=== PATIENT | female | born 1990 | race Caucasian/White ===

== ENCOUNTER 2017-08-08 19:00 | Inpatient (IN) | payer BC ==
[2017-08-08] MEDS ORDERED: Misoprostol 25 MCG (1/4 of 100 MCG) Tab ONE (19:25)
[2017-08-08] MEDS ORDERED: Misoprostol 100 MCG Tab VAG PRN (19:41)
[2017-08-08] MEDS ORDERED: Sodium Chloride 0.9% 10 ML Syringe FLUSH PRN (19:41)
[2017-08-09] MEDS ORDERED: Oxytocin/Lactated Ringers 10 UNIT/1,000 ML BAG IV SCH (00:30)
[2017-08-09] MEDS: Lactated Ringers 1,000 ML IV SCH ×3 (00:50→07:21)
[2017-08-09] MEDS ORDERED: diphenhydrAMINE 50 MG/ML SDV IVPUSH PRN (06:11)
[2017-08-09] MEDS ORDERED: ePHEDrine 50 MG/ML SDV IVPUSH PRN (06:11)
[2017-08-09] MEDS ORDERED: Ondansetron 4 MG/2 ML SDV IVPUSH PRN (06:11)
[2017-08-09] MEDS ORDERED: fentaNYL 100 MCG/2 ML SDV EPIDUR PRN (06:12)
[2017-08-09] MEDS ORDERED: Bupivacaine/fentaNYL/NS 100 ML Bag EPIDUR SCH (06:15)
--- NOTE | 2017-08-09 06:58 | PCM.PREANE ---
Preanesthetic Assessment - Anesthesia/Transfusion/Family Hx Anesthesia History: No Prior Anesthesia Family History of Anesthesia Reaction: No Transfusion History: No Prior Transfusion(s) - Review of Systems General: No Symptoms Pulmonary: No Symptoms Cardiovascular: No Symptoms Gastrointestinal: No Symptoms Neurological: No Symptoms Other: Reports: None - Physical Assessment Respiratory Rate: 14 Vital Signs: Last Vital Signs Temp 37.3 C 08/08/17 19:42 Pulse 78 08/08/17 19:42 Resp 14 08/08/17 19:42 BP 128/78 08/08/17 19:42 Pulse Ox Height: 1.73 m Weight: 88.451 kg ASA Class: 2 Mental Status: Alert & Oriented x3 Airway Class: Mallampati = 1 Dentition: Reports: Normal Dentition Thyro-Mental Finger Breadths: 3 Mouth Opening Finger Breadths: 3 ROM/Head Extension: Full Lungs: Clear to Auscultation, Normal Respiratory Effort Cardiovascular: Regular Rate, Regular Rhythm - Lab Values: Laboratory Last Values WBC 16.88 K/mm3 (3.98-10.04) H 08/09/17 06:00 RBC 4.15 M/mm3 (3.98-5.22) 08/09/17 06:00 Hgb 12.9 gm/L (11.2-15.7) 08/09/17 06:00 Hct 38.5 % (34.1-44.9) 08/09/17 06:00 MCV 92.8 fl (79.4-94.8) 08/09/17 06:00 MCH 31.1 pg (25.6-32.2) 08/09/17 06:00 MCHC 33.5 g/dl (32.2-35.5) 08/09/17 06:00 RDW Std Deviation 44.1 fL (36.4-46.3) 08/09/17 06:00 Plt Count 163 K/mm3 (182-369) L 08/09/17 06:00 MPV 12.1 fl (9.4-12.3) 08/09/17 06:00 Neut % (Auto) 77.6 % (34.0-71.1) H 08/09/17 06:00 Lymph % (Auto) 14.9 % (19.3-51.7) L 08/09/17 06:00 [place] % (Auto) 7.0 % (4.7-12.5) 08/09/17 06:00 Eos % (Auto) 0.1 (0.7-5.8) L 08/09/17 06:00 Baso % (Auto) 0.1 % (0.1-1.2) 08/09/17 06:00 Neut # (Auto) 13.09 K/mm3 (1.56-6.13) H 08/09/17 06:00 Lymph # (Auto) 2.51 K/mm3 (1.18-3.74) 08/09/17 06:00 [place] # (Auto) 1.19 K/mm3 (0.24-0.36) H 08/09/17 06:00 Eos # (Auto) 0.02 K/mm3 (0.04-0.36) L 08/09/17 06:00 Baso # (Auto) 0.02 K/mm3 (0.01-0.08) 08/09/17 06:00 - Allergies Allergies/Adverse Reactions: Allergies Allergy/AdvReac Type Severity Reaction Status Date / Time amoxicillin Allergy Rash Verified 08/08/17 20:48 - Acknowledgements Anesthesia Type Planned: Epidural Pt an Appropriate Candidate for the Planned Anesthesia: Yes Alternatives and Risks of Anesthesia Discussed w Pt/Guardian: Yes Pt/Guardian Understands and Agrees with Anesthesia Plan: Yes PreAnesthesia Questionnaire HEENT History: Reports: None Cardiovascular History: Reports: None Respiratory History: Reports: None Gastrointestinal History: Reports: Other (See Below) Other Gastrointestinal History: Occasional constipation Genitourinary History: Reports: 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: Musculoskeletal History: Reports: None Neurological History: Reports: None Psychiatric History: Reports: None Endocrine/Metabolic History: Reports: None Hematologic History: Reports: None Immunologic History: Reports: None Oncologic (Cancer) History: Reports: None Dermatologic History: Reports: None - Past Surgical History Head Surgeries/Procedures: Reports: None HEENT Surgical History: Reports: None Cardiovascular Surgical History: Reports: None Respiratory Surgical History: Reports: None GI Surgical History: Reports: None Female Surgical History: Reports: None Endocrine Surgical History: Reports: None Neurological Surgical History: Reports: None Musculoskeletal Surgical History: Reports: None Oncologic Surgical History: Reports: None Dermatological Surgical History: Reports: None - SUBSTANCE USE Smoking Status *Q: Former Smoker Tobacco Use Within Last Twelve Months: No Second Hand Smoke Exposure: No Recreational Drug Use History: No - CURRENT (IN HOUSE) MEDS Current Meds: Current Medications Diphenhydramine HCl (Benadryl) 25 mg IVPUSH Q6H PRN PRN Reason: Pruritis Ephedrine Sulfate (Ephedrine Sulfate) 5 mg IVPUSH ASDIRECTED PRN PRN Reason: Hypotension Fentanyl (Sublimaze) 100 mcg EPIDUR ONETIME PRN PRN Reason: Pain Last Admin: 08/09/17 06:50 Dose: 100 mcg Fentanyl/Bupivacaine HCl (Fentanyl/Bupivacaine/Ns 2 Mcg-0.125% 100 Ml) 100 ml EPIDUR ASDIRECTED [facility] Last Admin: 08/09/17 06:49 Dose: 100 ml Lactated Ringer's (Ringers, Lactated) 1,000 mls @ 40 mls/hr IV ASDIRECTED [facility] Last Admin: 08/09/17 06:08 Dose: 999 mls/hr Oxytocin/Lactated Ringer's (Pitocin In Lr 10 Units/1,000 Ml) 10 unit in 1,000 mls @ 6 mls/hr IV TITRATE [facility] HUGO; 1 MUNITS/MIN PRN Reason: Protocol Last Titration: 08/09/17 04:53 Dose: 2 munits/min, 12 mls/hr Misoprostol (Cytotec) 25 mcg VAG Q4H PRN PRN Reason: cervical ripening Last Admin: 08/08/17 19:31 Dose: 25 mcg Ondansetron HCl (Zofran) 4 mg IVPUSH ONETIME PRN PRN Reason: Nausea/Vomiting Sodium Chloride (Saline Flush) 10 ml FLUSH ASDIRECTED PRN PRN Reason: Keep Vein Open Discontinued Medications Misoprostol (Cytotec) Confirm Administered Dose 25 mcg .ROUTE .STK-MED ONE Stop: 08/08/17 19:26 Last Admin: 08/08/17 20:54 Dose: Not Given
--- NOTE | 2017-08-09 12:22 | PCM.LDHP ---
L&D History of Present Illness - General Date of Service: 08/08/17 Admit Problem/Dx: Admission Diagnosis/Problem Admission Diagnosis/Problem Source of Information: Patient History Limitations: Reports: No Limitations - History of Present Illness Introduction:: 27 year old at 40+ weeks here for induction of labor. Irregular contractions. 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: Musculoskeletal History: Reports: None Neurological History: Reports: None Psychiatric History: Reports: None Endocrine/Metabolic History: Reports: None Hematologic History: Reports: None Immunologic History: Reports: None Oncologic (Cancer) History: Reports: None Dermatologic History: Reports: None - Past Surgical History Head Surgeries/Procedures: Reports: None HEENT Surgical History: Reports: None Cardiovascular Surgical History: Reports: None Respiratory Surgical History: Reports: None GI Surgical History: Reports: None Female Surgical History: Reports: None Endocrine Surgical History: Reports: None Neurological Surgical History: Reports: None Musculoskeletal Surgical History: Reports: None Oncologic Surgical History: Reports: None Dermatological Surgical History: Reports: None Social & Family History - Family History Family Medical History: Noncontributory - Tobacco Use Smoking Status *Q: Former Smoker Years of Tobacco use: 7 Used Tobacco, but Quit: Yes Month Tobacco Last Used: quit 3 years ago Second Hand Smoke Exposure: No - Caffeine Use Caffeine Use: Reports: None - Recreational Drug Use Recreational Drug Use: No H&P Review of Systems - Review of Systems: Review Of Systems: See Below General: Reports: No Symptoms HEENT: Reports: No Symptoms Pulmonary: Reports: No Symptoms Cardiovascular: Reports: No Symptoms Gastrointestinal: Reports: No Symptoms Genitourinary: Reports: No Symptoms Musculoskeletal: Reports: No Symptoms Skin: Reports: No Symptoms Psychiatric: Reports: No Symptoms Neurological: Reports: No Symptoms Hematologic/Lymphatic: Reports: No Symptoms Immunologic: Reports: No Symptoms L&D Exam - Exam Exam: See Below - Vital Signs Vital Signs: Last Vital Signs Temp 37.3 C 08/08/17 19:42 Pulse 78 08/08/17 19:42 Resp 14 08/09/17 06:57 BP 128/78 08/08/17 19:42 Pulse Ox Weight: 88.451 kg - OB Specific Contraction Intensity: Mild Movement: Active Heart Tones: Present Heart Rate (FHR) Variability: Moderate (6-25 bmp) Presentation: Vertex - Georges Score Georges Score Cervix Position: Midposition Georges Score Consistency: Soft Georges Score Effacement: 51-70% Georges Score Dilation: 3-4 cm Georges Score 's Station: -2 Georges Score Total: 8 - Exam General: Alert, Oriented HEENT: PERRLA, Conjunctiva Clear, EACs Clear, EOMI, Hearing Intact, Mucosa Moist & [place], Nares Patent, Normal Nasal Septum, Posterior Pharynx Clear, TMs Clear Neck: Supple, Trachea Midline Lungs: Clear to Auscultation, Normal Respiratory Effort Cardiovascular: Regular Rate, Regular Rhythm GI/Abdominal Exam: Normal Bowel Sounds, Soft, Non-Tender, No Organomegaly, No Distention, No Abnormal Bruit, No Mass, Pelvis Stable Rectal Exam: Normal Rectal Tone Genitourinary: Normal external exam, Normal bimanual exam, Normal speculum exam Back Exam: Normal Inspection, Full Range of Motion Extremities: Normal Inspection, Normal Range of Motion, Non-Tender, No Pedal Edema, Normal Capillary Refill Skin: Warm, Dry, Intact Neurological: Cranial Nerves Intact, Reflexes Equal Bilateral Psychiatric: Alert, Normal Affect, Normal Mood - Patient Data Lab Results Last 24 hrs: Laboratory Results - last 24 hr 08/09/17 08/09/17 Range/Units 06:00 06:00 WBC 16.88 H (3.98-10.04) K/mm3 RBC 4.15 (3.98-5.22) M/mm3 Hgb 12.9 (11.2-15.7) gm/L Hct 38.5 (34.1-44.9) % MCV 92.8 (79.4-94.8) fl MCH 31.1 (25.6-32.2) pg MCHC 33.5 (32.2-35.5) g/dl RDW Std Deviation 44.1 (36.4-46.3) fL Plt Count 163 L (182-369) K/mm3 MPV 12.1 (9.4-12.3) fl Neut % (Auto) 77.6 H (34.0-71.1) % Lymph % (Auto) 14.9 L (19.3-51.7) % [place] % (Auto) 7.0 (4.7-12.5) % Eos % (Auto) 0.1 L (0.7-5.8) Baso % (Auto) 0.1 (0.1-1.2) % Neut # (Auto) 13.09 H (1.56-6.13) K/mm3 Lymph # (Auto) 2.51 (1.18-3.74) K/mm3 [place] # (Auto) 1.19 H (0.24-0.36) K/mm3 Eos # (Auto) 0.02 L (0.04-0.36) K/mm3 Baso # (Auto) 0.02 (0.01-0.08) K/mm3 Blood Type AB POSITIVE Gel Antibody Screen Negative Result Diagrams: 08/09/17 06:00 Problem List Initiated/Reviewed/Updated: Yes Orders Last 24hrs: Active Orders 24 hr Category Date Time Status Communication Order [RC] ASDIRECTED Care 08/08/17 19:42 Active Communication Order [RC] ASDIRECTED Care 08/08/17 19:42 Active Communication Order [RC] ASDIRECTED Care 08/08/17 19:42 Active Monitoring [RC] INTERMITTENT Care 08/08/17 19:42 Active Notify Provider [RC] ASDIRECTED Care 08/08/17 19:42 Active Notify Provider [RC] ASDIRECTED Care 08/09/17 06:11 Active Peripheral IV Care [RC] . DIRECTED Care 08/08/17 19:42 Active Vaginal Exam [RC] ASDIRECTED Care 08/08/17 19:42 Active Vital Signs [RC] ASDIRECTED Care 08/08/17 19:42 Active Bupivacaine/fentaNYL/NS [fentaNYL/Bupivacaine/NS 2 MCG- Med 08/09/17 06:15 Active 0.125% 100 ML] 100 ml EPIDUR ASDIRECTED Lactated Ringers [Ringers, Lactated] 1,000 ml Med 08/08/17 19:45 Active IV ASDIRECTED Misoprostol [Cytotec] Med 08/08/17 19:41 Active 25 mcg VAG Q4H PRN Ondansetron [Zofran] Med 08/09/17 06:11 Active 4 mg IVPUSH ONETIME PRN Oxytocin/Lactated Ringers [Pitocin in LR 10 Units/1,000 Med 08/09/17 00:30 Active ML] 10 unit in 1,000 ml IV TITRATE Sodium Chloride 0.9% [Saline Flush] Med 08/08/17 19:41 Active 10 ml FLUSH ASDIRECTED PRN diphenhydrAMINE [Benadryl] Med 08/09/17 06:11 Active 25 mg IVPUSH Q6H PRN ePHEDrine [ePHEDrine Sulfate] Med 08/09/17 06:11 Active 5 mg IVPUSH ASDIRECTED PRN fentaNYL [Sublimaze] Med 08/09/17 06:12 Active 100 mcg EPIDUR ONETIME PRN Medication Administration Instruction [OM.PC] Oth 08/08/17 19:45 Ordered ASDIRECTED Peripheral IV Insertion Adult [OM.PC] Routine Ot 08/08/17 19:42 Ordered Medication Orders Diphenhydramine HCl (Benadryl) 25 mg IVPUSH Q6H PRN PRN Reason: Pruritis Ephedrine Sulfate (Ephedrine Sulfate) 5 mg IVPUSH ASDIRECTED PRN PRN Reason: Hypotension Fentanyl (Sublimaze) 100 mcg EPIDUR ONETIME PRN PRN Reason: Pain Last Admin: 08/09/17 06:50 Dose: 100 mcg Fentanyl/Bupivacaine HCl (Fentanyl/Bupivacaine/Ns 2 Mcg-0.125% 100 Ml) 100 ml EPIDUR ASDIRECTED [facility] Last Admin: 08/09/17 06:49 Dose: 100 ml Lactated Ringer's (Ringers, Lactated) 1,000 mls @ 40 mls/hr IV ASDIRECTED [facility] Last Admin: 08/09/17 07:21 Dose: 40 mls/hr Infusion: 08/09/17 07:09 Dose: 999 mls/hr Admin: 08/09/17 06:08 Dose: 999 mls/hr Infusion: 08/09/17 06:08 Dose: 40 mls/hr Admin: 08/09/17 00:50 Dose: 40 mls/hr Oxytocin/Lactated Ringer's (Pitocin In Lr 10 Units/1,000 Ml) 10 unit in 1,000 mls @ 6 mls/hr IV TITRATE VICTOR HUGO; 1 MUNITS/MIN PRN Reason: Protocol Last Titration: 08/09/17 06:08 Dose: 0 munits/min, 0 mls/hr Titration: 08/09/17 04:53 Dose: 2 munits/min, 12 mls/hr Titration: 08/09/17 04:00 Dose: 1 munits/min, 6 mls/hr Titration: 08/09/17 02:15 Dose: 0 munits/min, 0 mls/hr Admin: 08/09/17 00:53 Dose: 1 munits/min, 6 mls/hr Misoprostol (Cytotec) 25 mcg VAG Q4H PRN PRN Reason: cervical ripening Last Admin: 08/08/17 19:31 Dose: 25 mcg Ondansetron HCl (Zofran) 4 mg IVPUSH ONETIME PRN PRN Reason: Nausea/Vomiting Sodium Chloride (Saline Flush) 10 ml FLUSH ASDIRECTED PRN PRN Reason: Keep Vein Open Assessment/Plan Comment:: 27 year old here for induction. Cytotec. If more regular contractions without change start pitocin and AROM prn.
--- NOTE | 2017-08-09 12:29 | PCM.DEL ---
L & D Note - General Info Date of Service: 08/09/17 - Delivery Note Labor: Induced by ARM Cervical Ripening Method: Misoprostil Delivery Outcome: Livebirth Presentation: Vertex Nuchal Cord: None Laceration: 2nd Degree Placenta: Intact, Spontaneous Cord: 3 Vessels Estimated Blood Loss: 400 Resuscitation Needed: Yes Score 1 min: 8 Score 5 min: 9 - Patient Data Vitals - Most Recent: Last Vital Signs Temp 37.3 C 08/08/17 19:42 Pulse 78 08/08/17 19:42 Resp 14 08/09/17 06:57 BP 128/78 08/08/17 19:42 Pulse Ox Weight - Most Recent: 88.451 kg Lab Results Last 24 Hours: Laboratory Results - last 24 hr 08/09/17 08/09/17 Range/Units 06:00 06:00 WBC 16.88 H (3.98-10.04) K/mm3 RBC 4.15 (3.98-5.22) M/mm3 Hgb 12.9 (11.2-15.7) gm/L Hct 38.5 (34.1-44.9) % MCV 92.8 (79.4-94.8) fl MCH 31.1 (25.6-32.2) pg MCHC 33.5 (32.2-35.5) g/dl RDW Std Deviation 44.1 (36.4-46.3) fL Plt Count 163 L (182-369) K/mm3 MPV 12.1 (9.4-12.3) fl Neut % (Auto) 77.6 H (34.0-71.1) % Lymph % (Auto) 14.9 L (19.3-51.7) % [place] % (Auto) 7.0 (4.7-12.5) % Eos % (Auto) 0.1 L (0.7-5.8) Baso % (Auto) 0.1 (0.1-1.2) % Neut # (Auto) 13.09 H (1.56-6.13) K/mm3 Lymph # (Auto) 2.51 (1.18-3.74) K/mm3 [place] # (Auto) 1.19 H (0.24-0.36) K/mm3 Eos # (Auto) 0.02 L (0.04-0.36) K/mm3 Baso # (Auto) 0.02 (0.01-0.08) K/mm3 Blood Type AB POSITIVE Gel Antibody Screen Negative Med Orders - Current: Current Medications Diphenhydramine HCl (Benadryl) 25 mg IVPUSH Q6H PRN PRN Reason: Pruritis Ephedrine Sulfate (Ephedrine Sulfate) 5 mg IVPUSH ASDIRECTED PRN PRN Reason: Hypotension Fentanyl (Sublimaze) 100 mcg EPIDUR ONETIME PRN PRN Reason: Pain Last Admin: 08/09/17 06:50 Dose: 100 mcg Fentanyl/Bupivacaine HCl (Fentanyl/Bupivacaine/Ns 2 Mcg-0.125% 100 Ml) 100 ml EPIDUR ASDIRECTED [facility] HUGO Last Admin: 08/09/17 06:49 Dose: 100 ml Lactated Ringer's (Ringers, Lactated) 1,000 mls @ 40 mls/hr IV ASDIRECTED [facility] HUGO Last Admin: 08/09/17 07:21 Dose: 40 mls/hr Oxytocin/Lactated Ringer's (Pitocin In Lr 10 Units/1,000 Ml) 10 unit in 1,000 mls @ 6 mls/hr IV TITRATE VICTOR HUGO; 1 MUNITS/MIN PRN Reason: Protocol Last Titration: 08/09/17 06:08 Dose: 0 munits/min, 0 mls/hr Misoprostol (Cytotec) 25 mcg VAG Q4H PRN PRN Reason: cervical ripening Last Admin: 08/08/17 19:31 Dose: 25 mcg Ondansetron HCl (Zofran) 4 mg IVPUSH ONETIME PRN PRN Reason: Nausea/Vomiting Sodium Chloride (Saline Flush) 10 ml FLUSH ASDIRECTED PRN PRN Reason: Keep Vein Open Discontinued Medications Misoprostol (Cytotec) Confirm Administered Dose 25 mcg .ROUTE .STK-MED ONE Stop: 08/08/17 19:26 Last Admin: 08/08/17 20:54 Dose: Not Given - Problem List Review Problem List Initiated/Reviewed/Updated: Yes - My Orders Last 24 Hours: My Active Orders 08/08/17 19:41 Misoprostol [Cytotec] 25 mcg VAG Q4H PRN Sodium Chloride 0.9% [Saline Flush] 10 ml FLUSH ASDIRECTED PRN 08/08/17 19:42 Communication Order [RC] ASDIRECTED Communication Order [RC] ASDIRECTED Communication Order [RC] ASDIRECTED Monitoring [RC] INTERMITTENT Notify Provider [RC] ASDIRECTED Peripheral IV Care [RC] . DIRECTED Vaginal Exam [RC] ASDIRECTED Vital Signs [RC] ASDIRECTED Peripheral IV Insertion Adult [OM.PC] Routine 08/08/17 19:45 Lactated Ringers [Ringers, Lactated] 1,000 ml IV ASDIRECTED Medication Administration Instruction [OM.PC] ASDIRECTED 08/09/17 00:30 Oxytocin/Lactated Ringers [Pitocin in LR 10 Units/1,000 ML] 10 unit in 1,000 ml IV TITRATE 08/09/17 12:23 Patient Status Manage Transfer [TRANSFER] Routine 08/09/17 12:24 Resuscitation Status Routine - Plan Plan:: 27 year old here for induction. Cytotec. If more regular contractions without change start pitocin and AROM prn.
[2017-08-09] MEDS ORDERED: Lanolin 100% Cream 7 GM Tube TOP PRN (13:09)
[2017-08-09] MEDS ORDERED: Benzocaine/Menthol 20%-0.5% Spray 56 GM Canister TOP PRN (13:09)
[2017-08-09] MEDS ORDERED: Docusate Sodium 100 MG Cap PO PRN (13:09)
[2017-08-09] MEDS ORDERED: Witch Hazel Medicated Pads 100/Jar TOP PRN (13:09)
[2017-08-09] MEDS: Ibuprofen 600 MG Tab PO PRN (16:08)
[2017-08-09] MEDS ORDERED: Bupivacaine 0.25% 10 ML SDV ONE (22:22)
--- NOTE | 2017-08-10 11:20 | PCM.PNPP ---
- General Info Date of Service: 08/10/17 Functional Status: Reports: Pain Controlled - Review of Systems General: Reports: No Symptoms HEENT: Reports: No Symptoms Pulmonary: Reports: No Symptoms Cardiovascular: Reports: No Symptoms Gastrointestinal: Reports: No Symptoms Genitourinary: Reports: No Symptoms Musculoskeletal: Reports: No Symptoms Skin: Reports: No Symptoms Neurological: Reports: No Symptoms Psychiatric: Reports: No Symptoms - General Info Date of Service: 08/10/17 - Patient Data Vital Signs - Most Recent: Last Vital Signs Temp 98.4 F 08/10/17 04:19 Pulse 69 08/10/17 04:19 Resp 16 08/10/17 04:19 BP 107/64 08/10/17 04:19 Pulse Ox 98 08/10/17 04:19 Weight - Most Recent: 195 lb I&O - Last 24 Hours: Intake & Output 08/09/17 08/10/17 08/10/17 22:59 06:59 14:59 Intake Total 360 Balance 360 Med Orders - Current: Current Medications Benzocaine/Menthol (Dermoplast Pain Relief [place]) 0 gm TOP ASDIRECTED PRN PRN Reason: Perineal Comfort Measure Last Admin: 08/09/17 14:30 Dose: 1 applic Docusate Sodium (Colace) 100 mg PO BID PRN PRN Reason: Constipation Emollient Ointment (Lansinoh Hpa) 0 gm TOP ASDIRECTED PRN PRN Reason: Sore Nipples Ibuprofen (Motrin) 600 mg PO Q6H PRN PRN Reason: Mild pain or fever Last Admin: 08/09/17 16:08 Dose: 600 mg Witch Rachana (Tucks) 1 pad TOP ASDIRECTED PRN PRN Reason: Hemorrhoid pain Last Admin: 08/09/17 14:54 Dose: 1 applic Discontinued Medications Diphenhydramine HCl (Benadryl) 25 mg IVPUSH Q6H PRN PRN Reason: Pruritis Ephedrine Sulfate (Ephedrine Sulfate) 5 mg IVPUSH ASDIRECTED PRN PRN Reason: Hypotension Fentanyl (Sublimaze) 100 mcg EPIDUR ONETIME PRN PRN Reason: Pain Last Admin: 08/09/17 06:50 Dose: 100 mcg Fentanyl/Bupivacaine HCl (Fentanyl/Bupivacaine/Ns 2 Mcg-0.125% 100 Ml) 100 ml EPIDUR ASDIRECTED [facility] Last Admin: 08/09/17 06:49 Dose: 100 ml Lactated Ringer's (Ringers, Lactated) 1,000 mls @ 40 mls/hr IV ASDIRECTED [facility] Last Admin: 08/09/17 07:21 Dose: 40 mls/hr Oxytocin/Lactated Ringer's (Pitocin In Lr 10 Units/1,000 Ml) 10 unit in 1,000 mls @ 6 mls/hr IV TITRATE [facility] HUGO; 1 MUNITS/MIN PRN Reason: Protocol Last Titration: 08/09/17 06:08 Dose: 0 munits/min, 0 mls/hr Misoprostol (Cytotec) Confirm Administered Dose 25 mcg .ROUTE .STK-MED ONE Stop: 08/08/17 19:26 Last Admin: 08/08/17 20:54 Dose: Not Given Misoprostol (Cytotec) 25 mcg VAG Q4H PRN PRN Reason: cervical ripening Last Admin: 08/08/17 19:31 Dose: 25 mcg Ondansetron HCl (Zofran) 4 mg IVPUSH ONETIME PRN PRN Reason: Nausea/Vomiting Sodium Chloride (Saline Flush) 10 ml FLUSH ASDIRECTED PRN PRN Reason: Keep Vein Open - Interaction Infant Disposition, : [place] in Room with Family Interaction: Holding Infant Feeding: Continues to Breastfeed Support Person: - Recovery Exam Fundal Tone: Firm Fundal Level: 1 Fingerbreadths Below Umbilicus Fundal Placement: Midline Lochia Amount: Small Lochia Color: Rubra/Red Perineum Description: Intact, Minimal Bruising/Swelling Other Perinuem Description: 2nd Degree with Repair Episiotomy/Laceration: Approximated Bladder Status: Voiding Urinary Elimination: Voided - Exam General: Alert, Oriented Neck: Supple Lungs: Clear to Auscultation, Normal Respiratory Effort Cardiovascular: Regular Rate, Regular Rhythm GI/Abdominal Exam: Normal Bowel Sounds, Soft, Non-Tender, No Organomegaly, No Distention, No Abnormal Bruit, No Mass, Pelvis Stable Extremities: Normal Inspection, Normal Range of Motion, Non-Tender, No Pedal Edema, Normal Capillary Refill Skin: Warm, Dry, Intact Wound/Incisions: Healing Well Neurological: No New Focal Deficit Psy/Mental Status: Alert, Normal Affect, Normal Mood - Problem List & Annotations (1) 40 weeks gestation of SNOMED Code(s): 52760881 Code(s): Z3A.40 - 40 WEEKS GESTATION OF Status: Acute Current Visit: Yes (2) Second degree laceration of perineum, delivered, current hospitalization SNOMED Code(s): 651088042 Code(s): O70.1 - SECOND DEGREE PERINEAL LACERATION DURING DELIVERY Status: Acute Current Visit: Yes - Problem List Review Problem List Initiated/Reviewed/Updated: No - Assessment Assessment:: Doing well probably home tomorrow - Plan Plan:: 27 year old here for induction. Cytotec. If more regular contractions without change start pitocin and AROM prn.
[2017-08-10] MEDS ORDERED: Hydrocortisone 1% Crm 30 GM Tube TOP PRN (11:47)
[2017-08-10] MEDS: Ibuprofen 600 MG Tab PO PRN (11:49)
--- NOTE | 2017-08-11 09:03 | PCM.DCSUM1 ---
Discharge Summary - Hospital Course Free Text/Narrative:: [facility] L/D Delivery Note Patient Name: EMELYN AVALOS Date of : 86 Patient Status: Inpatient Attending Provider: Araseli Veloz Date: 08/09/17 12:27 Initialization Date: 08/09/17 12:27 L & D Note - General Info Date of Service: 08/09/17 - Delivery Note Labor: Induced by ARM Cervical Ripening Method: Misoprostil Delivery Outcome: Livebirth Presentation: Vertex Nuchal Cord: None Laceration: 2nd Degree Placenta: Intact, Spontaneous Cord: 3 Vessels Estimated Blood Loss: 400 Resuscitation Needed: Yes Score 1 min: 8 Score 5 min: 9 - Patient Data Vitals - Most Recent: Last Vital Signs Temp 37.3 C 08/08/17 19:42 Pulse 78 08/08/17 19:42 Resp 14 08/09/17 06:57 BP 128/78 08/08/17 19:42 Pulse Ox Weight - Most Recent: 88.451 kg Lab Results Last 24 Hours: Laboratory Results - last 24 hr 08/09/17 08/09/17 Range/Units 06:00 06:00 WBC 16.88 H (3.98-10.04) K/mm3 RBC 4.15 (3.98-5.22) M/mm3 Hgb 12.9 (11.2-15.7) gm/L Hct 38.5 (34.1-44.9) % MCV 92.8 (79.4-94.8) fl MCH 31.1 (25.6-32.2) pg MCHC 33.5 (32.2-35.5) g/dl RDW Std Deviation 44.1 (36.4-46.3) fL Plt Count 163 L (182-369) K/mm3 MPV 12.1 (9.4-12.3) fl Neut % (Auto) 77.6 H (34.0-71.1) % Lymph % (Auto) 14.9 L (19.3-51.7) % Bryan % (Auto) 7.0 (4.7-12.5) % Eos % (Auto) 0.1 L (0.7-5.8) Baso % (Auto) 0.1 (0.1-1.2) % Neut # (Auto) 13.09 H (1.56-6.13) K/mm3 Lymph # (Auto) 2.51 (1.18-3.74) K/mm3 Bryan # (Auto) 1.19 H (0.24-0.36) K/mm3 Eos # (Auto) 0.02 L (0.04-0.36) K/mm3 Baso # (Auto) 0.02 (0.01-0.08) K/mm3 Blood Type AB POSITIVE Gel Antibody Screen Negative Med Orders - Current: Current Medications Diphenhydramine HCl (Benadryl) 25 mg IVPUSH Q6H PRN PRN Reason: Pruritis Ephedrine Sulfate (Ephedrine Sulfate) 5 mg IVPUSH ASDIRECTED PRN PRN Reason: Hypotension Fentanyl (Sublimaze) 100 mcg EPIDUR ONETIME PRN PRN Reason: Pain Last Admin: 08/09/17 06:50 Dose: 100 mcg Fentanyl/Bupivacaine HCl (Fentanyl/Bupivacaine/Ns 2 Mcg-0.125% 100 Ml) 100 ml EPIDUR ASDIRECTED VICTOR HUGO Last Admin: 08/09/17 06:49 Dose: 100 ml Lactated Ringer's (Ringers, Lactated) 1,000 mls @ 40 mls/hr IV ASDIRECTED VICTOR HUGO Last Admin: 08/09/17 07:21 Dose: 40 mls/hr Oxytocin/Lactated Ringer's (Pitocin In Lr 10 Units/1,000 Ml) 10 unit in 1,000 mls @ 6 mls/hr IV TITRATE VICTOR HUGO; 1 MUNITS/MIN PRN Reason: Protocol Last Titration: 08/09/17 06:08 Dose: 0 munits/min, 0 mls/hr Misoprostol (Cytotec) 25 mcg VAG Q4H PRN PRN Reason: cervical ripening Last Admin: 08/08/17 19:31 Dose: 25 mcg Ondansetron HCl (Zofran) 4 mg IVPUSH ONETIME PRN PRN Reason: Nausea/Vomiting Sodium Chloride (Saline Flush) 10 ml FLUSH ASDIRECTED PRN PRN Reason: Keep Vein Open Discontinued Medications Misoprostol (Cytotec) Confirm Administered Dose 25 mcg .ROUTE .STK-MED ONE Stop: 08/08/17 19:26 Last Admin: 08/08/17 20:54 Dose: Not Given - Problem List Review Problem List Initiated/Reviewed/Updated: Yes - My Orders Last 24 Hours: My Active Orders 08/08/17 19:41 Misoprostol [Cytotec] 25 mcg VAG Q4H PRN Sodium Chloride 0.9% [Saline Flush] 10 ml FLUSH ASDIRECTED PRN 08/08/17 19:42 Communication Order [RC] ASDIRECTED Communication Order [RC] ASDIRECTED Communication Order [RC] ASDIRECTED Monitoring [RC] INTERMITTENT Notify Provider [RC] ASDIRECTED Peripheral IV Care [RC] . DIRECTED Vaginal Exam [RC] ASDIRECTED Vital Signs [RC] ASDIRECTED Peripheral IV Insertion Adult [OM.PC] Routine 08/08/17 19:45 Lactated Ringers [Ringers, Lactated] 1,000 ml IV ASDIRECTED Medication Administration Instruction [OM.PC] ASDIRECTED 08/09/17 00:30 Oxytocin/Lactated Ringers [Pitocin in LR 10 Units/1,000 ML] 10 unit in 1,000 ml IV TITRATE 08/09/17 12:23 Patient Status Manage Transfer [TRANSFER] Routine 08/09/17 12:24 Resuscitation Status Routine - Plan Plan:: 27 year old here for induction. Cytotec. If more regular contractions without change start pitocin and AROM prn. HPI Initial Comments: [facility] LIVE L/D Delivery Note Patient Name: EMELYN AVALOS Date of : 86 Patient Status: Inpatient Attending Provider: Araseli Veloz Date: 08/09/17 12:27 Initialization Date: 08/09/17 12:27 L & D Note - General Info Date of Service: 08/09/17 - Delivery Note Labor: Induced by ARM Cervical Ripening Method: Misoprostil Delivery Outcome: Livebirth Presentation: Vertex Nuchal Cord: None Laceration: 2nd Degree Placenta: Intact, Spontaneous Cord: 3 Vessels Estimated Blood Loss: 400 Resuscitation Needed: Yes Score 1 min: 8 Score 5 min: 9 - Patient Data Vitals - Most Recent: Last Vital Signs Temp 37.3 C 08/08/17 19:42 Pulse 78 08/08/17 19:42 Resp 14 08/09/17 06:57 BP 128/78 08/08/17 19:42 Pulse Ox Weight - Most Recent: 88.451 kg Lab Results Last 24 Hours: Laboratory Results - last 24 hr 08/09/17 08/09/17 Range/Units 06:00 06:00 WBC 16.88 H (3.98-10.04) K/mm3 RBC 4.15 (3.98-5.22) M/mm3 Hgb 12.9 (11.2-15.7) gm/L Hct 38.5 (34.1-44.9) % MCV 92.8 (79.4-94.8) fl MCH 31.1 (25.6-32.2) pg MCHC 33.5 (32.2-35.5) g/dl RDW Std Deviation 44.1 (36.4-46.3) fL Plt Count 163 L (182-369) K/mm3 MPV 12.1 (9.4-12.3) fl Neut % (Auto) 77.6 H (34.0-71.1) % Lymph % (Auto) 14.9 L (19.3-51.7) % Bryan % (Auto) 7.0 (4.7-12.5) % Eos % (Auto) 0.1 L (0.7-5.8) Baso % (Auto) 0.1 (0.1-1.2) % Neut # (Auto) 13.09 H (1.56-6.13) K/mm3 Lymph # (Auto) 2.51 (1.18-3.74) K/mm3 Bryan # (Auto) 1.19 H (0.24-0.36) K/mm3 Eos # (Auto) 0.02 L (0.04-0.36) K/mm3 Baso # (Auto) 0.02 (0.01-0.08) K/mm3 Blood Type AB POSITIVE Gel Antibody Screen Negative Med Orders - Current: Current Medications Diphenhydramine HCl (Benadryl) 25 mg IVPUSH Q6H PRN PRN Reason: Pruritis Ephedrine Sulfate (Ephedrine Sulfate) 5 mg IVPUSH ASDIRECTED PRN PRN Reason: Hypotension Fentanyl (Sublimaze) 100 mcg EPIDUR ONETIME PRN PRN Reason: Pain Last Admin: 08/09/17 06:50 Dose: 100 mcg Fentanyl/Bupivacaine HCl (Fentanyl/Bupivacaine/Ns 2 Mcg-0.125% 100 Ml) 100 ml EPIDUR ASDIRECTED VICTOR HUGO Last Admin: 08/09/17 06:49 Dose: 100 ml Lactated Ringer's (Ringers, Lactated) 1,000 mls @ 40 mls/hr IV ASDIRECTED VICTOR HUGO Last Admin: 08/09/17 07:21 Dose: 40 mls/hr Oxytocin/Lactated Ringer's (Pitocin In Lr 10 Units/1,000 Ml) 10 unit in 1,000 mls @ 6 mls/hr IV TITRATE VICTOR HUGO; 1 MUNITS/MIN PRN Reason: Protocol Last Titration: 08/09/17 06:08 Dose: 0 munits/min, 0 mls/hr Misoprostol (Cytotec) 25 mcg VAG Q4H PRN PRN Reason: cervical ripening Last Admin: 08/08/17 19:31 Dose: 25 mcg Ondansetron HCl (Zofran) 4 mg IVPUSH ONETIME PRN PRN Reason: Nausea/Vomiting Sodium Chloride (Saline Flush) 10 ml FLUSH ASDIRECTED PRN PRN Reason: Keep Vein Open Discontinued Medications Misoprostol (Cytotec) Confirm Administered Dose 25 mcg .ROUTE .STK-MED ONE Stop: 08/08/17 19:26 Last Admin: 08/08/17 20:54 Dose: Not Given - Problem List Review Problem List Initiated/Reviewed/Updated: Yes - My Orders Last 24 Hours: My Active Orders 08/08/17 19:41 Misoprostol [Cytotec] 25 mcg VAG Q4H PRN Sodium Chloride 0.9% [Saline Flush] 10 ml FLUSH ASDIRECTED PRN 08/08/17 19:42 Communication Order [RC] ASDIRECTED Communication Order [RC] ASDIRECTED Communication Order [RC] ASDIRECTED Monitoring [RC] INTERMITTENT Notify Provider [RC] ASDIRECTED Peripheral IV Care [RC] . DIRECTED Vaginal Exam [RC] ASDIRECTED Vital Signs [RC] ASDIRECTED Peripheral IV Insertion Adult [OM.PC] Routine 08/08/17 19:45 Lactated Ringers [Ringers, Lactated] 1,000 ml IV ASDIRECTED Medication Administration Instruction [OM.PC] ASDIRECTED 08/09/17 00:30 Oxytocin/Lactated Ringers [Pitocin in LR 10 Units/1,000 ML] 10 unit in 1,000 ml IV TITRATE 08/09/17 12:23 Patient Status Manage Transfer [TRANSFER] Routine 08/09/17 12:24 Resuscitation Status Routine - Plan Plan:: 27 year old here for induction. Cytotec. If more regular contractions without change start pitocin and AROM prn. Brief History: [facility] . L[facility]D Delivery [facility]. [id number]. Date of : 86Patient Status: Inpatient. Attending Provider: Araseli Velozunt Number: [id number]. Date: 08/09/17 12:27Initialization Date: 08/09/17 12:27. L & D Note. - General Info. Date of Service: 08/09/17. - Delivery Note. Labor: Induced by ARM. Cervical Ripening Method: Misoprostil. Delivery Outcome: Livebirth. Presentation: Vertex. Nuchal Cord: None. Laceration: 2nd Degree. Placenta: Intact, Spontaneous. Cord: 3 Vessels. Estimated Blood Loss: 400. Resuscitation Needed: Yes. Score 1 min: 8. Score 5 min: 9. - Patient Data. Vitals - Most Recent: Last Vital Signs. Temp 37.3 C 08/08/17 19:42. Pulse 78 08/08/17 19:42. Resp 14 06:57. BP 128/78 08/08/17 19:42. Pulse Ox. Weight - Most Recent: 88.451 kg. Lab Results Last 24 Hours: Laboratory Results - last 24 hr. 08/09/1710Range/Units. 06:0006:00. WBC 16.88 H (3.98-10.04) K/mm3. RBC 4.15 (3.98- 5.22) M/mm3. Hgb 12.9 (11.2-15.7) gm/L. Hct 38.5 (34.1-44.9) %. MCV 92.8 ( 79.4-94.8) fl. MCH 31.1 (25.6-32.2) pg. MCHC 33.5 (32.2-35.5) g/dl. RDW Std Deviation 44.1 (36.4-46.3) fL. Plt Count 163 L (182-369) K/mm3. MPV 12.1 (9.4-12.3) fl. Neut % (Auto) 77.6 H (34.0-71.1) %. Lymph % (Auto) 14.9 L (19.3-51.7) %. Bryan % (Auto) 7.0 (4.7-12.5) %. Eos % (Auto) 0.1 L (0.7-5.8 ). Baso % (Auto) 0.1 (0.1-1.2) %. Neut # (Auto) 13.09 H (1.56-6.13) K/mm3. Lymph # (Auto) 2.51 (1.18-3.74) K/mm3. Bryan # (Auto) 1.19 H (0.24-0.36) K/ mm3. Eos # (Auto) 0.02 L (0.04-0.36) K/mm3. Baso # (Auto) 0.02 (0.01-0.08) K /mm3. Blood Type AB POSITIVE. Gel Antibody Screen Negative. Med Orders - Current: Current Medications. Diphenhydramine HCl (Benadryl) 25 mg IVPUSH Q6H PRN. PRN Reason: Pruritis. Ephedrine Sulfate (Ephedrine Sulfate) 5 mg IVPUSH ASDIRECTED PRN. PRN Reason: Hypotension. Fentanyl (Sublimaze) 100 mcg EPIDUR ONETIME PRN. PRN Reason: Pain. Last Admin: 08/09/17 06:50 Dose: 100 mcg. Fentanyl/Bupivacaine HCl (Fentanyl/Bupivacaine/Ns 2 Mcg-0.125% 100 Ml) 100 ml EPIDUR ASDIRECTED VICTOR HUGO. Last Admin: 08/09/17 06:49 Dose: 100 ml. Lactated Ringer's (Ringers, Lactated) 1,000 mls @ 40 mls/hr IV ASDIRECTED VICTOR HUGO. Last Admin: 08/09/17 07:21 Dose: 40 mls/hr. Oxytocin/Lactated Ringer's ( Pitocin In Lr 10 Units/1,000 Ml) 10 unit in 1,000 mls @ 6 mls/hr IV TITRATE VICTOR HUGO ; 1 MUNITS/MIN. PRN Reason: Protocol. Last Titration: 08/09/17 06:08 Dose: 0 munits/min, 0 mls/hr. Misoprostol (Cytotec) 25 mcg VAG Q4H PRN. PRN Reason: cervical ripening. Last Admin: 08/08/17 19:31 Dose: 25 mcg. Ondansetron HCl ( Zofran) 4 mg IVPUSH ONETIME PRN. PRN Reason: Nausea/Vomiting. Sodium Chloride (Saline Flush) 10 ml FLUSH ASDIRECTED PRN. PRN Reason: Keep Vein Open. Discontinued Medications. Misoprostol (Cytotec) Confirm Administered Dose 25 mcg .ROUTE .STK-MED ONE. Stop: 08/08/17 19:26. Last Admin: 08/08/17 20 :54 Dose: Not Given. - Problem List Review. Problem List Initiated/Reviewed/ Updated: Yes. - My Orders. Last 24 Hours: My Active Orders. 08/08/17 19:41. Misoprostol [Cytotec] 25 mcg VAG Q4H PRN. Sodium Chloride 0.9% [Saline Flush] 10 ml FLUSH ASDIRECTED PRN. 08/08/17 19:42. Communication Order [RC] ASDIRECTED. Communication Order [RC] ASDIRECTED. Communication Order [RC] ASDIRECTED. Monitoring [RC] INTERMITTENT. Notify Provider [RC] ASDIRECTED. Peripheral IV Care [RC] . DIRECTED. Vaginal Exam [RC] ASDIRECTED. Vital Signs [RC] ASDIRECTED. Peripheral IV Insertion Adult [OM.PC ] Routine. 08/08/17 19:45. Lactated Ringers [Ringers, Lactated] 1,000 ml IV ASDIRECTED. Medication Administration Instruction [OM.PC] ASDIRECTED. 00:30. Oxytocin/Lactated Ringers [Pitocin in LR 10 Units/1,000 ML] 10 unit in 1,000 ml IV TITRATE. 08/09/17 12:23. Patient Status Manage Transfer [ TRANSFER] Routine. 08/09/17 12:24. Resuscitation Status Routine. - Plan. Plan:: 27 year old here for induction. Cytotec. If more regular contractions without change start pitocin and AROM prn. - Discharge Data Discharge Date: 08/11/17 Discharge Disposition: Home, Self-Care 01 Condition: Good - Discharge Diagnosis/Problem(s) (1) 40 weeks gestation of SNOMED Code(s): 09805821 ICD Code: Z3A.40 - 40 WEEKS GESTATION OF Status: Acute Current Visit: Yes (2) Second degree laceration of perineum, delivered, current hospitalization SNOMED Code(s): 145770960 ICD Code: O70.1 - SECOND DEGREE PERINEAL LACERATION DURING DELIVERY Status : Acute Current Visit: Yes - Patient Instructions Diet: Regular Diet as Tolerated Driving: Do Not Drive (48 hours) Showering/Bathing: May Shower Notify Provider of: Fever, Increased Pain, Swelling and Redness, Drainage, Nausea and/or Vomiting - Discharge Plan Home Medications: Home Meds Benzocaine/Menthol [Dermoplast Pain Relief [place]] 1 spray TOP ASDIRECTED PRN canister 08/11/17 [Rx] Docusate Sodium [Colace] 100 mg PO BID PRN cap 08/11/17 [Rx] Hydrocortisone [Hydrocortisone 1% Crm] 0 gm TOP ASDIRECTED PRN tube 08/11/17 [ Rx] Ibuprofen [IJD: Ibuprofen] 600 mg PO Q6H PRN tablet 08/11/17 [Rx] Lanolin [Lansinoh HPA] 1 applic TOP ASDIRECTED PRN tube 08/11/17 [Rx] Colin Rachana [Tucks] 1 pad TOP ASDIRECTED PRN pad 08/11/17 [Rx] Referrals: Araseli Veloz MD [Primary Care Provider] - (6 weeks) - Discharge Summary/Plan Comment DC Time >30 min.: No - Patient Data Vitals - Most Recent: Last Vital Signs Temp 98.8 F 08/11/17 04:42 Pulse 69 08/11/17 04:42 Resp 16 08/11/17 04:42 BP 117/75 08/11/17 04:42 Pulse Ox 97 08/11/17 04:42 Weight - Most Recent: 195 lb I&O - Last 24 hours: Intake & Output 08/10/17 08/11/17 08/11/17 22:59 06:59 14:59 Intake Total 60 Balance 60 Med Orders - Current: Current Medications Benzocaine/Menthol (Dermoplast Pain Relief [place]) 0 gm TOP ASDIRECTED PRN PRN Reason: Perineal Comfort Measure Last Admin: 08/09/17 14:30 Dose: 1 applic Docusate Sodium (Colace) 100 mg PO BID PRN PRN Reason: Constipation Emollient Ointment (Lansinoh Hpa) 0 gm TOP ASDIRECTED PRN PRN Reason: Sore Nipples Hydrocortisone (Hydrocortisone 1% Crm) 0 gm TOP ASDIRECTED PRN PRN Reason: Hemorrhoids Last Admin: 08/10/17 18:00 Dose: 1 applic Ibuprofen (Motrin) 600 mg PO Q6H PRN PRN Reason: Mild pain or fever Last Admin: 08/10/17 11:49 Dose: 600 mg Witch Rachana (Tucks) 1 pad TOP ASDIRECTED PRN PRN Reason: Hemorrhoid pain Last Admin: 08/09/17 14:54 Dose: 1 applic Discontinued Medications Diphenhydramine HCl (Benadryl) 25 mg IVPUSH Q6H PRN PRN Reason: Pruritis Ephedrine Sulfate (Ephedrine Sulfate) 5 mg IVPUSH ASDIRECTED PRN PRN Reason: Hypotension Fentanyl (Sublimaze) 100 mcg EPIDUR ONETIME PRN PRN Reason: Pain Last Admin: 08/09/17 06:50 Dose: 100 mcg Fentanyl/Bupivacaine HCl (Fentanyl/Bupivacaine/Ns 2 Mcg-0.125% 100 Ml) 100 ml EPIDUR ASDIRECTED VICTOR HUGO Last Admin: 08/09/17 06:49 Dose: 100 ml Lactated Ringer's (Ringers, Lactated) 1,000 mls @ 40 mls/hr IV ASDIRECTED VICTOR HUGO Last Admin: 08/09/17 07:21 Dose: 40 mls/hr Oxytocin/Lactated Ringer's (Pitocin In Lr 10 Units/1,000 Ml) 10 unit in 1,000 mls @ 6 mls/hr IV TITRATE VICTOR HUGO; 1 MUNITS/MIN PRN Reason: Protocol Last Titration: 08/09/17 06:08 Dose: 0 munits/min, 0 mls/hr Misoprostol (Cytotec) Confirm Administered Dose 25 mcg .ROUTE .STK-MED ONE Stop: 08/08/17 19:26 Last Admin: 08/08/17 20:54 Dose: Not Given Misoprostol (Cytotec) 25 mcg VAG Q4H PRN PRN Reason: cervical ripening Last Admin: 08/08/17 19:31 Dose: 25 mcg Ondansetron HCl (Zofran) 4 mg IVPUSH ONETIME PRN PRN Reason: Nausea/Vomiting Sodium Chloride (Saline Flush) 10 ml FLUSH ASDIRECTED PRN PRN Reason: Keep Vein Open *Q Meaningful Use (DIS) - VTE *Q VTE Criteria *Q: - Stroke *Q Stroke Criteria *Q: - AMI *Q AMI Criteria *Q:
== END 2017-08-11 10:35 | disposition home or self-care (01) | DRG 560 ==
LOC: JD.OB 19:00 → OBSVTOIN 08-09 11:57 → JD.OB 08-09 11:57
PROVIDERS: ADMIT Obstetrics & Gynecology; ATTEND Obstetrics & Gynecology
PROC: 10E0XZZ Delivery of Products of Conception, External Approach (ICD-10-PCS; principal; 2017-08-09)
PROC: 0KQM0ZZ Repair Perineum Muscle, Open Approach (ICD-10-PCS; 2017-08-09)
PROC: 3E0P7VZ Introduction of Hormone into Female Reproductive, Via Natural or Artificial Opening (ICD-10-PCS; 2017-08-09)
PROC: 3E0P3VZ Introduction of Hormone into Female Reproductive, Percutaneous Approach (ICD-10-PCS; 2017-08-09)
PROC: 10907ZC Drainage of Amniotic Fluid, Therapeutic from Products of Conception, Via Natural or Artificial Opening (ICD-10-PCS; 2017-08-09)
PROC: 00HU33Z Insertion of Infusion Device into Spinal Canal, Percutaneous Approach (ICD-10-PCS; 2017-08-09)
PROC: 3E0R3BZ Introduction of Anesthetic Agent into Spinal Canal, Percutaneous Approach (ICD-10-PCS; 2017-08-09)
DX: O70.1 Second degree perineal laceration during delivery (principal); Z3A.40 40 weeks gestation of pregnancy; Z37.0 Single live birth; Z88.1 Allergy status to other antibiotic agents; Z87.891 Personal history of nicotine dependence
CPT/HCPCS: 36415; 51702; 59300; 59409; 85025; 86850; 86900; 86901; A9270-GY; J2590; J3010; J7120

== ENCOUNTER 2019-08-20 19:14 | Inpatient (IN) | payer BC ==
[2019-08-20] MEDS ORDERED: ceFAZolin 2 GM in Premix Bag 1 BAG IV ONE (19:47)
[2019-08-20] MEDS ORDERED: Sodium Chloride 0.9% 10 ML Syringe FLUSH PRN (19:47)
[2019-08-20] MEDS ORDERED: Nalbuphine 10 MG/1 ML Vial IVPUSH PRN (19:47)
--- NOTE | 2019-08-20 19:56 | PCM.LDHP ---
L&D History of Present Illness - General Date of Service: 08/20/19 Admit Problem/Dx: Admission Diagnosis/Problem Admission Diagnosis/Problem Source of Information: Patient History Limitations: Reports: No Limitations - History of Present Illness Introduction:: 29 year old at 40w2d by LMP consistent with second trimester ultrasound presents for induction of labor. PNC with myself without complications. - Related Data Allergies/Adverse Reactions: Allergies Allergy/AdvReac Type Severity Reaction Status Date / Time amoxicillin Allergy Rash Verified 08/08/17 20:48 Past Medical History HEENT History: Reports: None Cardiovascular History: Reports: None Respiratory History: Reports: None Gastrointestinal History: Reports: Other (See Below) Other Gastrointestinal History: Occasional constipation Genitourinary History: Reports: None [employer] History: Reports: Musculoskeletal History: Reports: None Neurological History: Reports: None Psychiatric History: Reports: None Endocrine/Metabolic History: Reports: None Hematologic History: Reports: None Immunologic History: Reports: None Oncologic (Cancer) History: Reports: None Dermatologic History: Reports: None - Past Surgical History Head Surgeries/Procedures: Reports: None HEENT Surgical History: Reports: None Cardiovascular Surgical History: Reports: None Respiratory Surgical History: Reports: None GI Surgical History: Reports: None Female Surgical History: Reports: None Endocrine Surgical History: Reports: None Neurological Surgical History: Reports: None Musculoskeletal Surgical History: Reports: None Oncologic Surgical History: Reports: None Dermatological Surgical History: Reports: None Social & Family History - Family History Family Medical History: Noncontributory - Caffeine Use Caffeine Use: Reports: None H&P Review of Systems - Review of Systems: Review Of Systems: See Below General: Reports: No Symptoms HEENT: Reports: No Symptoms Pulmonary: Reports: No Symptoms Cardiovascular: Reports: No Symptoms Gastrointestinal: Reports: No Symptoms Genitourinary: Reports: No Symptoms Musculoskeletal: Reports: No Symptoms Skin: Reports: No Symptoms Psychiatric: Reports: No Symptoms Neurological: Reports: No Symptoms Hematologic/Lymphatic: Reports: No Symptoms Immunologic: Reports: No Symptoms L&D Exam - Exam Exam: See Below - OB Specific Fundal Height In cm: 40 Contraction Intensity: Mild to Moderate Movement: Active Heart Tones: Present Heart Tones per Min: 140 Presentation: Vertex - Georges Score Georges Score Cervix Position: Midposition Georges Score Consistency: Soft Georges Score Effacement: 51-70% Georges Score Dilation: 3-4 cm Georges Score Infant's Station: -2 Georges Score Total: 8 - Exam General: Alert, Oriented HEENT: PERRLA, Conjunctiva Clear, EACs Clear, EOMI, Hearing Intact, Mucosa Moist & [place], Nares Patent, Normal Nasal Septum, Posterior Pharynx Clear, TMs Clear Lungs: Clear to Auscultation, Normal Respiratory Effort Cardiovascular: Regular Rate, Regular Rhythm GI/Abdominal Exam: Normal Bowel Sounds, Soft, Non-Tender, No Organomegaly, No Distention, No Abnormal Bruit, No Mass, Pelvis Stable Genitourinary: Normal external exam Back Exam: Normal Inspection, Full Range of Motion Extremities: Normal Inspection, Normal Range of Motion, Non-Tender, No Pedal Edema, Normal Capillary Refill Skin: Warm, Dry, Intact Neurological: Cranial Nerves Intact, Reflexes Equal Bilateral Psychiatric: Alert, Normal Affect, Normal Mood Problem List Initiated/Reviewed/Updated: Yes Orders Last 24hrs: Active Orders 24 hr Category Date Time Status Activity as Tolerated [RC] PFP Care 08/20/19 19:48 Active Communication Order [RC] ASDIRECTED Care 08/20/19 19:48 Active Heart Tones [RC] ASDIRECTED Care 08/20/19 19:48 Active Non Stress Test [RC] PER UNIT ROUTINE Care 08/20/19 19:48 Active Notify Provider [RC] PFP Care 08/20/19 19:48 Active Notify Provider [RC] PRN Care 08/20/19 19:48 Active Peripheral IV Care [RC] . DIRECTED Care 08/20/19 19:48 Active Vital Signs [RC] PER UNIT ROUTINE Care 08/20/19 19:48 Active Regular Diet [DIET] Diet 08/20/19 Dinner Active CBC W/O DIFF,HEMOGRAM [HEME] Routine Lab 08/20/19 19:47 Ordered RAPID PLASMA REAGIN,RPR [CHEM] Routine Lab 08/20/19 19:48 Ordered TYPE AND SCREEN [BBK] Routine Lab 08/20/19 19:47 Ordered Lactated Ringers [Ringers, Lactated] 1,000 ml Med 08/20/19 20:00 Ordered IV ASDIRECTED Nalbuphine [Nubain] Med 08/20/19 19:47 Ordered 10 mg IVPUSH Q2H PRN Oxytocin/Lactated Ringers [Pitocin in LR 10 Units/1,000 Med 08/20/19 20:00 Ordered ML] 10 unit in 1,000 ml IV .CONTINUOUS Oxytocin/Lactated Ringers [Pitocin in LR 10 Units/1,000 Med 08/20/19 20:00 Ordered ML] 10 unit in 1,000 ml IV TITRATE Sodium Chloride 0.9% [Saline Flush] Med 08/20/19 19:47 Ordered 10 ml FLUSH ASDIRECTED PRN ceFAZolin [Ancef] 1 gm Med 08/20/19 22:00 Ordered Premix Bag 1 bag IV Q8HR ceFAZolin [Ancef] 2 gm Med 08/20/19 19:47 Ordered Premix Bag 1 bag IV ONETIME Electronic Heart Tones Ext w TOCO [WOMSER] Oth 08/20/19 19:48 Ordered Routine Electronic Heart Tones Internal [WOMSER] Per Unit Oth 08/20/19 19:48 Ordered Routine Peripheral IV Insertion Adult [OM.PC] Routine Oth 08/20/19 19:48 Ordered Resuscitation Status Routine Resus Stat 08/20/19 19:47 Ordered Medication Orders Cefazolin Sodium/Dextrose 2 gm (/ Premix) 50 mls @ 100 mls/hr IV ONETIME ONE Stop: 08/20/19 20:16 Cefazolin Sodium/Dextrose 1 gm (/ Premix) 50 mls @ 100 mls/hr IV Q8HR VICTOR HUGO Lactated Ringer's (Ringers, Lactated) 1,000 mls @ 100 mls/hr IV ASDIRECTED VICTOR HUGO Oxytocin/Lactated Ringer's (Pitocin In Lr 10 Units/1,000 Ml) 10 unit in 1,000 mls @ 100 mls/hr IV .CONTINUOUS VICTOR HUGO Oxytocin/Lactated Ringer's (Pitocin In Lr 10 Units/1,000 Ml) 10 unit in 1,000 mls @ 12 mls/hr IV TITRATE VICTOR HUGO; Protocol Nalbuphine HCl (Nubain) 10 mg IVPUSH Q2H PRN PRN Reason: Pain Sodium Chloride (Saline Flush) 10 ml FLUSH ASDIRECTED PRN PRN Reason: Keep Vein Open Assessment/Plan Comment:: Term induction. GBS positive, multip. Monitor. Anticipate . Actively initiate pitocin once 4-6 hours after first dose antibiotics.
[2019-08-20] MEDS ORDERED: Oxytocin/Lactated Ringers 10 UNIT/1,000 ML BAG IV SCH ×2 (20:00)
[2019-08-20] MEDS ORDERED: ceFAZolin/Dextrose,Iso-Osmotic 2 GM/50 ML Duplex Bag IV ONE (20:13)
[2019-08-20] MEDS: Lactated Ringers 1,000 ML IV SCH (20:16)
[2019-08-21] MEDS ORDERED: Bupivacaine 0.25% 10 ML SDV ONE ×2
[2019-08-21] MEDS: Lactated Ringers 1,000 ML IV SCH (02:34)
[2019-08-21] MEDS ORDERED: fentaNYL 100 MCG/2 ML SDV ONE (02:50)
[2019-08-21] MEDS ORDERED: diphenhydrAMINE 50 MG/ML SDV IVPUSH PRN (03:01)
[2019-08-21] MEDS ORDERED: fentaNYL 100 MCG/2 ML SDV EPIDUR PRN (03:01)
[2019-08-21] MEDS ORDERED: fentaNYL/Bupivacaine/NS 2 MCG-0.125% 250 ML EPIDUR PRN (03:01)
[2019-08-21] MEDS ORDERED: ePHEDrine 50 MG/ML SDV IVPUSH PRN (03:01)
--- NOTE | 2019-08-21 03:04 | PCM.PREANE ---
Preanesthetic Assessment - Procedure Proposed Procedure: south - Anesthesia/Transfusion/Family Hx Anesthesia History: Prior Anesthesia Without Reaction Family History of Anesthesia Reaction: No Transfusion History: No Prior Transfusion(s) - Review of Systems General: No Symptoms Pulmonary: No Symptoms Cardiovascular: No Symptoms Gastrointestinal: Abdominal Pain Neurological: No Symptoms Other: Reports: None - Physical Assessment Vital Signs: 154/60 99%70 Height: 5 ft 8 in Weight: 94.347 kg ASA Class: 2 Mental Status: Alert & Oriented x3 Airway Class: Mallampati = 1 Dentition: Reports: Normal Dentition Thyro-Mental Finger Breadths: 3 Mouth Opening Finger Breadths: 3 ROM/Head Extension: Full Lungs: Clear to Auscultation, Normal Respiratory Effort Cardiovascular: Regular Rate, Regular Rhythm - Lab Values: Laboratory Last Values WBC 10.10 K/mm3 (3.98-10.04) H 08/20/19 20:00 RBC 3.83 M/mm3 (3.98-5.22) L 08/20/19 20:00 Hgb 11.6 gm/dl (11.2-15.7) 08/20/19 20:00 Hct 35.6 % (34.1-44.9) 08/20/19 20:00 MCV 93.0 fl (79.4-94.8) 08/20/19 20:00 MCH 30.3 pg (25.6-32.2) 08/20/19 20:00 MCHC 32.6 g/dl (32.2-35.5) 08/20/19 20:00 RDW Std Deviation 45.8 fL (36.4-46.3) 08/20/19 20:00 Plt Count 160 K/mm3 (182-369) L 08/20/19 20:00 MPV 11.9 fl (9.4-12.3) 08/20/19 20:00 Blood Type AB POSITIVE 08/20/19 20:00 Gel Antibody Screen Negative 08/20/19 20:00 - Allergies Allergies/Adverse Reactions: Allergies Allergy/AdvReac Type Severity Reaction Status Date / Time amoxicillin Allergy Rash Verified 08/20/19 20:55 - Blood Blood Available: No - Acknowledgements Anesthesia Type Planned: Epidural Pt an Appropriate Candidate for the Planned Anesthesia: Yes Alternatives and Risks of Anesthesia Discussed w Pt/Guardian: Yes Pt/Guardian Understands and Agrees with Anesthesia Plan: Yes PreAnesthesia Questionnaire HEENT History: Reports: None Cardiovascular History: Reports: None Respiratory History: Reports: None Gastrointestinal History: Reports: GERD (with preg), Other (See Below) Other Gastrointestinal History: Occasional constipation Genitourinary History: Reports: None [employer] G[employer]IER History: Reports: : 2 Para: 1 Musculoskeletal History: Reports: None Neurological History: Reports: None Psychiatric History: Reports: Other (See Below) Other Psychiatric History: mild depression Endocrine/Metabolic History: Reports: None Hematologic History: Reports: None Immunologic History: Reports: None Oncologic (Cancer) History: Reports: None Dermatologic History: Reports: None - Past Surgical History Head Surgeries/Procedures: Reports: None HEENT Surgical History: Reports: None Cardiovascular Surgical History: Reports: None Respiratory Surgical History: Reports: None GI Surgical History: Reports: None Female Surgical History: Reports: None Endocrine Surgical History: Reports: None Neurological Surgical History: Reports: None Musculoskeletal Surgical History: Reports: None Oncologic Surgical History: Reports: None Dermatological Surgical History: Reports: None - SUBSTANCE USE Smoking Status *Q: Former Smoker Tobacco Use Within Last Twelve Months: No Second Hand Smoke Exposure: No Recreational Drug Use History: No - HOME MEDS Home Medications: Home Meds Vits #93/Iron Fum/FA [ Formula Tablet] 1 tab PO DAILY 08/20/19 [History] - CURRENT (IN HOUSE) MEDS Current Meds: Current Medications Cefazolin Sodium/Dextrose 1 gm (/ Premix) 50 mls @ 100 mls/hr IV Q8H VICTOR HUGO Lactated Ringer's (Ringers, Lactated) 1,000 mls @ 100 mls/hr IV ASDIRECTED VICTOR HUGO Last Admin: 08/21/19 02:34 Dose: 100 mls/hr Oxytocin/Lactated Ringer's (Pitocin In Lr 10 Units/1,000 Ml) 10 unit in 1,000 mls @ 100 mls/hr IV .CONTINUOUS VICTOR HUGO Oxytocin/Lactated Ringer's (Pitocin In Lr 10 Units/1,000 Ml) 10 unit in 1,000 mls @ 12 mls/hr IV TITRATE VICTOR HUGO; Protocol Nalbuphine HCl (Nubain) 10 mg IVPUSH Q2H PRN PRN Reason: Pain Sodium Chloride (Saline Flush) 10 ml FLUSH ASDIRECTED PRN PRN Reason: Keep Vein Open Discontinued Medications Cefazolin Sodium/Dextrose (Ancef) Confirm Administered Dose 2 gm IV .STK-MED ONE Stop: 08/20/19 20:14 Last Admin: 08/21/19 02:36 Dose: Not Given Fentanyl (Sublimaze) Confirm Administered Dose 100 mcg .ROUTE .STK-MED ONE Stop: 08/21/19 02:51 Cefazolin Sodium/Dextrose 2 gm (/ Premix) 50 mls @ 100 mls/hr IV ONETIME ONE Stop: 08/20/19 20:16 Last Admin: 08/20/19 20:16 Dose: 100 mls/hr
--- NOTE | 2019-08-21 03:44 | PCM.SN ---
- Free Text/Narrative Note: Stage I - Patient presented for induction of labor at 7 pm 10--19. Antibiotics for GBS initiated. Labor started spontaneously at 10pm. Progressed to complete with overall reassuring FHT. Epidural for anesthesia. SROM clear fluid during epidural. Stage II - of viable female, weight 8#7oz, APGARS 9/9 at 0324. Head delivered in a controlled manner over intact perineum. Body and shoulders atraumatically. Placed on maternal abdomen. Cord clamped and cut at 2 minutes of life. Stage III - of intact placenta, 3vc, small 1st degree laceration repaired with 3-0 vicryl. EBL 50
[2019-08-21] MEDS ORDERED: ceFAZolin 1 GM in Premix Bag 1 BAG IV SCH (04:00)
[2019-08-21] MEDS ORDERED: Hydrocortisone Acetate 25 MG Supp RECTAL PRN (04:22)
[2019-08-21] MEDS ORDERED: Benzocaine/Menthol 20%-0.5% Spray 56 GM Canister TOP PRN (04:22)
[2019-08-21] MEDS ORDERED: Witch Hazel Medicated Pads 40/Jar TOP PRN (04:22)
[2019-08-21] MEDS: Ibuprofen 600 MG Tab PO PRN ×3 (05:13→22:06)
--- NOTE | 2019-08-21 07:13 | PCM48HPAN ---
Post Anesthesia Note - EVALUATION WITHIN 48HRS OF ANESTHETIC Vital Signs in Normal Range: Yes Patient Participated in Evaluation: Yes Respiratory Function Stable: Yes Airway Patent: Yes Cardiovascular Function Stable: Yes Hydration Status Stable: Yes Pain Control Satisfactory: Yes Nausea and Vomiting Control Satisfactory: Yes Mental Status Recovered: Yes
[2019-08-22] MEDS: Ibuprofen 600 MG Tab PO PRN (08:58)
== END 2019-08-22 10:54 | disposition home or self-care (01) | DRG 560 ==
LOC: JD.OB 19:14 → OBSVTOIN 08-21 03:24 → JD.OB 08-21 03:25
PROVIDERS: ADMIT Obstetrics & Gynecology; ATTEND Obstetrics & Gynecology
PROC: 10E0XZZ Delivery of Products of Conception, External Approach (ICD-10-PCS; principal; 2019-08-22)
PROC: 0HQ9XZZ Repair Perineum Skin, External Approach (ICD-10-PCS; 2019-08-22)
DX: O48.0 Post-term pregnancy (principal); Z88.1 Allergy status to other antibiotic agents; O99.824 Streptococcus B carrier state complicating childbirth; O70.0 First degree perineal laceration during delivery; Z3A.40 40 weeks gestation of pregnancy; Z37.0 Single live birth
CPT/HCPCS: 36415; 59025; 59409; 85027; 86592; 86850; 86900; 86901; A9270-GY; J0690; J2590; J3010; J3490; J7120